=== PATIENT | female | born 1965 | race Caucasian/White ===

== ENCOUNTER 2021-10-06 22:36 | Emergency (ER) | payer MEDICAID | END 2021-10-06 23:58 | disposition home or self-care (01) | LOC: JP.ED 22:36 | DX: R00.2 Palpitations (principal); R10.10 Upper abdominal pain, unspecified; Z79.82 Long term (current) use of aspirin; Z79.899 Other long term (current) drug therapy; Z79.01 Long term (current) use of anticoagulants | CPT/HCPCS: 36415; 80048; 84484; 85025; 93005; 99285 ==

== ENCOUNTER 2021-10-14 06:52 | Day surgery (SDC) | payer MEDICAID ==
[2021-10-14] MEDS ORDERED: Sodium Chloride 0.9% 1,000 ML IV SCH (07:30)
[2021-10-14] MEDS ORDERED: Lactated Ringers 1,000 ML IV SCH (07:30)
[2021-10-14] MEDS ORDERED: Propofol 200 MG/20 ML SDV ONE ×2 (07:41→09:09)
[2021-10-14] MEDS ORDERED: fentaNYL 100 MCG/2 ML SDV ONE (07:42)
== END 2021-10-14 10:20 | disposition home or self-care (01) ==
LOC: JP.SDS 06:52
PROVIDERS: ATTEND Surgery
DX: Z12.11 Encounter for screening for malignant neoplasm of colon (principal); K57.30 Diverticulosis of large intestine without perforation or abscess without bleeding; I10 Essential (primary) hypertension; E11.9 Type 2 diabetes mellitus without complications; F43.10 Post-traumatic stress disorder, unspecified
CPT/HCPCS: 45380; 88305; 88341; 88342; 88360; J2704; J3010; J7030